=== PATIENT | male | born 1970 | race Hispanic/Latino ===

== ENCOUNTER 2018-03-10 17:20 | Inpatient (IN) | payer BC, OTHER ==
[2018-03-10 17:21] VITALS: BMI 34.3
[2018-03-10] MEDS ORDERED: Sodium Chloride 0.9% 1,000 ML IV ONE (17:34)
[2018-03-10 17:56] LABS: BASO % 0.8 % (0.0-2.0); EOS # 0.1 K/uL (0.0-0.7); EOS % 1.7 % (0.0-4.0); HEMOGLOBIN 15.2 g/dL (12.0-18.0); LYMPH # 1.9 K/uL (1.0-4.3); LYMPH % 28.9 % (20.0-40.0); MEAN CELL VOLUME 85.2 fL (80.0-94.0); MEAN CORPUSCULAR HEMOGLOBIN 29.2 pg (27.0-31.0); MEAN CORPUSCULAR HGB CONC 34.2 g/dL (33.0-37.0); MEAN PLATELET VOLUME 8.8 fL (7.2-11.7); MONO # 1.2 K/uL (0.0-0.8); MONO % 18.6 % (0.0-10.0); NEUT # 3.3 K/uL (1.8-7.0); NRBC % 0.1 % (0.0-2.0); RBC 5.2 Mil/uL (4.40-5.90); RED CELL DISTRIBUTION WIDTH 13.9 % (11.5-14.5); WHITE BLOOD COUNT 6.6 K/uL (4.8-10.8)
[2018-03-10] MEDS ORDERED: Sodium Chloride 0.9% 1,000 ML ONE (17:59)
[2018-03-10 18:02] LABS: INR 1.1; PROTHROMBIN TIME 11.7 SECONDS (9.7-12.2)
[2018-03-10 18:07] LABS: LIPASE 65 U/L (23-300)
--- NOTE | 2018-03-10 18:14 | C.PDOC ---
"History Of Present Illness <CaterinaIdalmis A - Last Filed: 03/10/18 18:49> <Mari Wilson - Last Filed: 03/10/18 20:08> 48-year-old male, PMHx includes hypertension and hypercholesterolemia, presents to the emergency department for evaluation of headache and hypertension. Patient states he is currently on Augmentin for a sinus infection. Patient reports a headache x5 days and states he is not compliant with his blood pressure medication. Notes his BP today is 198/128, he has not taken Losartan, and his PMD sent him here. Denies chest pain, nausea//vomiting, feverm chills, or any other associated symptoms. Of note pt had a stress test in 2014, and cardiac catheterization in 2009 PMD Bere Lange MD. (Idalmis Diggs) <Idalmis Diggs - Last Filed: 03/10/18 18:49> <Mari Wilson - Last Filed: 03/10/18 20:08> Time Seen by Provider: 03/10/18 17:33 Chief Complaint (Nursing): Chest Pain Past Medical History Reviewed: Historical Data, Nursing Documentation, Vital Signs - Medical History PMH: HTN, Hypercholesterolemia Family History: States: No Known Family Hx - Social History Hx Alcohol Use: No Hx Substance Use: No - Immunization History Hx Tetanus Toxoid Vaccination: Yes (06/2017) Hx Influenza Vaccination: No Hx Pneumococcal Vaccination: No <Idalmis Diggs Venus - Last Filed: 03/10/18 18:49> Vital Signs: Last Vital Signs Temp 98.7 F 03/10/18 19:56 Pulse 76 03/10/18 19:56 Resp 18 03/10/18 19:56 BP 195/117 H 03/10/18 19:56 Pulse Ox 96 03/10/18 19:56 Review Of Systems Constitutional: Negative for: Fever Cardiovascular: Negative for: Chest Pain, Palpitations Respiratory: Negative for: Shortness of Breath Gastrointestinal: Negative for: Nausea, Vomiting Musculoskeletal: Negative for: Back Pain Neurological: Positive for: Headache <Idalmis Diggs - Last Filed: 03/10/18 18:49> Physical Exam - Physical Exam Appears: Non-toxic, No Acute Distress, Other (Obese) Skin: Normal Color, Warm, Dry, No Rash Head: Atraumatic, Normacephalic Eye(s): bilateral: Normal Inspection Nose: Normal Oral Mucosa: Moist Lips: Normal Appearing Neck: Normal ROM Cardiovascular: Rhythm Regular, No Murmur Respiratory: Normal Breath Sounds, No Accessory Muscle Use Gastrointestinal/Abdominal: Soft, No Tenderness Back: Normal Inspection Extremity: Normal ROM, No Deformity Neurological/Psych: Oriented x3, Normal Speech <CaterinaIdalmis Venus - Last Filed: 03/10/18 18:49> ED Course And Treatment - Laboratory Results Result Diagrams: 03/10/18 17:53 03/10/18 18:24 ECG: Interpreted By Nc ECG Rhythm: Sinus Rhythm ECG Interpretation: Normal Rate From EC O2 Sat by Pulse Oximetry: 98 Pulse Ox Interpretation: Normal (RA) - Radiology CXR: Interpreted by Me CXR Interpretation: Yes: No Acute Disease Progress Note: Patient treated with IVF NSS, losartan 100 mg PO and HCTZ 25 mg PO <CaterinaIdalmis Venus - Last Filed: 03/10/18 18:49> - Laboratory Results Result Diagrams: 03/10/18 17:53 03/10/18 18:24 - CT Scan/US CT head Other Rad Studies (CT/US): Read By Radiologist, Radiology Report Reviewed CT/US Interpretation: EXAM: CT Head Without Intravenous Contrast. CLINICAL HISTORY: 48 years old, male; Condition or disease; Headache; Migraine; Aura effect not specified. TECHNIQUE: Axial computed tomography images of the head/ brain without intravenous contrast. All CT scans at. this facility use at least one of these dose optimization techniques: automated exposure control; mA. and/or kV adjustment per patient size (includes targeted exams where dose is matched to clinical. indication); or iterative reconstruction. Coronal and sagittal reformatted images were created and reviewed. COMPARISON: No relevant prior studies available. FINDINGS: Brain: No hemorrhage. No significant periventricular microischemic changes. No edema. Ventricles: Appropriate for patient's age. Bones/joints: No acute fracture. Soft tissues: No radiopaque foreign body. Sinuses: No acute sinusitis. Mastoid air cells: No mastoid effusion. IMPRESSION: No acute CT intracranial abnormalities. Thank you for allowing us to participate in the care of your patient. Dictated and Authenticated by: Tristen Whitaker MD. 03/10/2018 8:01 PM Eastern Time ([place] & [place]) CTA chest Other Rad Studies (CT/US): Read By Radiologist, Radiology Report Reviewed CT/US Interpretation: EXAM: CT Angiography Chest With Intravenous Contrast. CLINICAL HISTORY: 48 years old, male; Pain and signs and symptoms; Dyspnea and shortness of breath; Chest pain;. Type not specified. TECHNIQUE: Axial computed tomographic angiography images of the chest with intravenous contrast using. pulmonary embolism protocol. All CT scans at this facility use at least one of these dose optimization. techniques: automated exposure control; mA and/ or kV adjustment per patient size (includes targeted. exams where dose is matched to clinical indication); or iterative reconstruction. MIP reconstructed images were created and reviewed. Coronal and sagittal reformatted images were created and reviewed. CONTRAST: 100 mL of VISIPAQUE 320 administered intravenously. COMPARISON: No relevant prior studies available. FINDINGS: Pulmonary arteries: Contrast opacification of the pulmonary outflow tract and the bilateral pulmonary. arteries is seen. No filling defects are seen down to the second order branching vessels to suggest. presence of pulmonary embolism. Aorta: No acute findings. No thoracic aortic aneurysm. Lungs: Dependent lung atelectasis. No infiltrates. Pleural space: Intact. No significant effusion. No pneumothorax. Heart: No cardiomegaly. No significant pericardial effusion. No evidence of RV dysfunction. Bones/joints: No acute fracture. No dislocation. Soft tissues: No radiopaque foreign body. Lymph nodes: No enlarged lymph nodes. IMPRESSION: No pulmonary embolism to the segmental branching pulmonary arteries. GABY TIJERINA | Preliminary Radiology Report. CONFIDENTIALITY STATEMENT. This report is intended only for the use of the referring physician , and only in accordance with law, If you received this in error, call [phone]. Page 2 of 2. Preliminary interpretation is based on receipt of 1134 images. A final report will be issued. subsequently. We appreciate the opportunity to be involved in this patient's care. Thank you for allowing us to participate in the care of your patient. Dictated and Authenticated by: Tristen Whitaker MD. 03/10/2018 8:06 PM Eastern Time ([place] & [place]) <Mari Wilson - Last Filed: 03/10/18 20:08> Disposition - Disposition Disposition Time: 19:00 - POA Present On Arrival: None <Idalmis Diggs - Last Filed: 03/10/18 18:49> <Mari Wilson - Last Filed: 03/10/18 20:08> - Disposition Condition: STABLE Forms: [facility] ([place]est[place]) - Clinical Impression Clinical Impression: Chest pain - Scribe Statement The provider has reviewed the documentation as recorded by the Scribe (Jose Antonio Delaney) <Idalmis Diggs - Last Filed: 03/10/18 18:49> <Mari Wilson - Last Filed: 03/10/18 20:08> - Scribe Statement All medical record entries made by the Scribe were at my direction and personally dictated by me. I have reviewed the chart and agree that the record accurately reflects my personal performance of the history, physical exam, medical decision making, and the department course for this patient. I have also personally directed, reviewed, and agree with the discharge instructions and disposition. (Idalmis Diggs) Physician Patient Turnover Patient Signed Over To: Mari Wilson Handoff Comments: pending CTA <Idalmis Diggs - Last Filed: 03/10/18 18:49> Decision To Admit - Pt Status Changed To: Hospital Disposition Of: Inpatient - Admit Certification Admit to Inpatient:: After my assessment, the patient will require hospitalization for at least two midnights. This is because of the severity of symptoms shown, intensity of services needed, and/or the medical risk in this patient being treated as an outpatient. - InPatient: Physician Admission Certification: I certify that this patient requires 2 or more midnights of care for the following reason:: Chest pain. Hypertension - . Bed Request Type: Telemetry Admitting Physician: Bere Lange <Idalmis Diggs - Last Filed: 03/10/18 18:49> <Mari Wilson - Last Filed: 03/10/18 20:08> - . Patient Diagnosis: Chest pain"
[2018-03-10 18:17] LABS: SQUAMOUS EPITHIAL < 1 /hpf (0-5); URINE BILIRUBIN NEGATIVE (NEGATIVE); URINE BLOOD NEGATIVE (NEGATIVE); URINE CLARITY Clear (Clear); URINE COLOR Yellow (YELLOW); URINE GLUCOSE (UA) NORMAL (Normal); URINE LEUKOCYTE ESTERASE NEG Leu/uL (Negative); URINE PROTEIN NEGATIVE (NEGATIVE); URINE UROBILINOGEN NORMAL mg/dL (0.2-1.0)
[2018-03-10 18:20] LABS: CK-MB 1.62 ng/mL (0.0-3.38)
[2018-03-10] MEDS ORDERED: Iodixanol 320 MG/ML 100 ML BOTTLE IV ONE (18:21)
[2018-03-10 18:36] LABS: ALB/GLOB RATIO 1.4 (1.0-2.1); ALBUMIN 4.4 g/dL (3.5-5.0); ALT/SGPT 61 U/L (21-72); AST/SGOT 38 U/L (17-59); BLOOD UREA NITROGEN 11 mg/dL (9-20); CALCIUM 9.3 mg/dl (8.6-10.4); GFR AFRICAN-AMERICAN > 60; GFR NON-AFRICAN AMERICAN > 60
[2018-03-10] MEDS ORDERED: niCARdipine IV 25 MG in Sodium Chloride 0.9% 240 ML IV SCH (22:00)
[2018-03-10] MEDS ORDERED: Sodium Chloride 0.9% 1,000 ML IV SCH (22:45)
[2018-03-11 06:33] LABS: BASO % 0.7 % (0.0-2.0); EOS # 0.2 K/uL (0.0-0.7); EOS % 2.7 % (0.0-4.0); HEMOGLOBIN 13.7 g/dL (12.0-18.0); LYMPH # 1.8 K/uL (1.0-4.3); LYMPH % 32.3 % (20.0-40.0); MEAN CELL VOLUME 84.2 fL (80.0-94.0); MEAN CORPUSCULAR HEMOGLOBIN 29.2 pg (27.0-31.0); MEAN CORPUSCULAR HGB CONC 34.7 g/dL (33.0-37.0); MONO # 0.7 K/uL (0.0-0.8); MONO % 12.8 % (0.0-10.0); NEUT # 2.9 K/uL (1.8-7.0); NEUT % 51.5 % (50.0-75.0); NRBC % 0.1 % (0.0-2.0); RBC 4.7 Mil/uL (4.40-5.90); RED CELL DISTRIBUTION WIDTH 13.8 % (11.5-14.5); WHITE BLOOD COUNT 5.6 K/uL (4.8-10.8)
[2018-03-11 06:46] LABS: ALB/GLOB RATIO 1.3 (1.0-2.1); ALBUMIN 3.3 g/dL (3.5-5.0); ALT/SGPT 49 U/L (21-72); AST/SGOT 38 U/L (17-59); BLOOD UREA NITROGEN 8 mg/dL (9-20); CALCIUM 7.2 mg/dl (8.6-10.4); GFR AFRICAN-AMERICAN > 60; GFR NON-AFRICAN AMERICAN > 60
[2018-03-11 07:10] LABS: HDL CHOLESTEROL 21 mg/dL (30-70)
[2018-03-11 07:21] LABS: LDL CHOLESTEROL 112 mg/dL (0-129)
--- NOTE | 2018-03-11 08:40 | CT ---
Date of service: 03/10/2018 PROCEDURE: CT HEAD WITHOUT CONTRAST. HISTORY: headache COMPARISON: None available. TECHNIQUE: Axial computed tomography images were obtained through the head/brain without intravenous contrast. Radiation dose: Total exam DLP = 1045 mGy-cm. This CT exam was performed using one or more of the following dose reduction techniques: Automated exposure control, adjustment of the mA and/or kV according to patient size, and/or use of iterative reconstruction technique. FINDINGS: HEMORRHAGE: No intracranial hemorrhage. BRAIN: No mass effect or edema. No atrophy or chronic microvascular ischemic changes. Punctate hypodensity in the left basal ganglia may represent a prominent perivascular space versus small lacunar infarct. VENTRICLES: Unremarkable. No hydrocephalus. CALVARIUM: Unremarkable. PARANASAL SINUSES: Unremarkable as visualized. No significant inflammatory changes. MASTOID AIR CELLS: Unremarkable as visualized. No inflammatory changes. OTHER FINDINGS: None. IMPRESSION: No acute intracranial abnormality. If focal neurologic deficit persists, consider correlation with MRI. These findings were preliminarily reported at 8:01 p.m. on 03/10/[address] Tristen Whitaker from [facility].
[2018-03-11] MEDS: Potassium Chloride 20 mEq ER Tab PO SCH ×2 (09:26→14:00)
[2018-03-11] MEDS: Pantoprazole 40 mg EC Tab PO SCH (10:00)
--- NOTE | 2018-03-11 10:15 | CT ---
Date of service: 03/10/2018 PROCEDURE: CT Chest with contrast (Pulmonary Angiogram) HISTORY: Dyspnea COMPARISON: None available. TECHNIQUE: Axial computed tomography images were obtained of the chest in the pulmonary arterial phase of enhancement. Coronal and sagittal reformatted images were created and reviewed. Intravenous contrast dose: 100 cc Visipaque 320 Radiation dose: Total exam DLP = 38800. mGy-cm. This CT exam was performed using one or more of the following dose reduction techniques: Automated exposure control, adjustment of the mA and/or kV according to patient size, and/or use of iterative reconstruction technique. FINDINGS: PULMONARY ARTERIES: Suboptimal opacification of the pulmonary arteries. . The visualized pulmonary trunk, right and left main, lobar and segmental branches of the pulmonary arteries are opacified with no definitive filling defects seen to suggest acute central pulmonary embolus. The subsegmental branches are poorly delineated. Pulmonary trunk measures approximate 3.19 cm. AORTA: No acute findings. No thoracic aortic aneurysm. Ascending thoracic aorta measures approximately 4.1 cm and descending thoracic aorta measures approximately 2.96 cm. LUNGS: Mild passive/dependent type atelectasis both lung bases left greater than right. . . PLEURAL SPACES: Unremarkable. No effusion or pneumothorax. HEART: Heart is mildly enlarged. No significant pericardial effusion. LYMPH NODES: Few small nonspecific mediastinal and hilar lymph nodes. Central airways midline and patent. No large central endoluminal lesions. Small hiatal hernia is present. BONES, CHEST WALL: Minor multilevel degenerative spondylosis of the thoracic spine. OTHER FINDINGS: Mild fatty hepatic infiltration IMPRESSION: Suboptimal study demonstrating no definitive central pulmonary embolus. . Ascending thoracic aorta measures approximately 4.1 cm Mild fatty hepatic infiltration.
--- NOTE | 2018-03-11 11:06 | CARD ---
APPROVED REPORT Date of service: 03/10/2018 EKG Measurement Heart [id number] <Conclusion> Normal sinus rhythm Minimal voltage criteria for LVH, may be normal variant Borderline ECG
--- NOTE | 2018-03-11 20:51 | CP.PCM.PN ---
Subjective - Date & Time of Evaluation Date of Evaluation: 03/11/18 Time of Evaluation: 12:04 - Subjective Subjective: Patient being transferred to the regular medical floor Being watched in the telemetry point of view. His blood pressure still on the high side. He has no chest pain, but headache still present, better than yesterday. Seen by ENT specialist. On examination: No new findings noted, less headache than yesterday. Blood pressure still uncontrolled. We will continue to monitor the patient. Possible cardiac angiogram tomorrow. Adjust the blood pressure monitoring and blood pressure medication. Patient definitely will need outpatient sleep study evaluation. And will follow -up the patient Also patient has a significant anxiety. Objective - Vital Signs/Intake and Output Vital Signs (last 24 hours): Temp Pulse Resp BP Pulse Ox 97.7 F 64 16 167/92 H 98 03/11/18 16:48 03/11/18 20:34 03/11/18 16:48 03/11/18 20:34 03/11/18 16:20 Intake and Output: 03/11/18 03/12/18 18:59 06:59 Intake Total 1320 Output Total 1425 Balance -105 - Medications Medications: Current Medications Acetaminophen (Tylenol 325mg Tab) 650 mg PO Q6 PRN PRN Reason: Headache Last Admin: 03/10/18 21:43 Dose: 650 mg Alprazolam (Xanax) 0.25 mg PO BID PRN PRN Reason: Anxiety Stop: 03/17/18 20:08 Last Admin: 03/10/18 20:49 Dose: 0.25 mg Amlodipine Besylate (Norvasc) 10 mg PO DAILY [facility] Last Admin: 03/11/18 10:00 Dose: 10 mg Ketorolac Tromethamine (Toradol) 15 mg IVP Q6 PRN PRN Reason: Headache Last Admin: 03/11/18 07:19 Dose: 15 mg Losartan Potassium (Cozaar) 100 mg PO DAILY [facility] Last Admin: 03/11/18 09:27 Dose: 100 mg Metoprolol Tartrate (Lopressor) 25 mg PO BID [facility] Last Admin: 03/11/18 17:34 Dose: 25 mg Pantoprazole Sodium (Protonix Ec Tab) 40 mg PO DAILY [facility] Last Admin: 03/11/18 10:00 Dose: 40 mg - Labs Labs: 03/11/18 06:20 03/11/18 06:20 PT 11.7 SECONDS (9.7-12.2) 03/10/18 17:53 INR 1.1 03/10/18 17:53
--- NOTE | 2018-03-11 20:51 | CP.PCM.HP ---
History of Present Illness - History of Present Illness History of Present Illness: Chief complaint: Severe headache, chest tightness. HPI: 48-year-old male with a history of hypertension, hypercholesterolemia came to the emergency room with worsening headache. Patient was complaining of increasing headache recently for the last 3-4 days. 2 weeks ago patient went to see ENT specialist for the headache and questionable diagnosis of sinusitis, given antibiotic at that time. But no improvement. Because of the headache worsening, he stopped taking medication for 2 days for the blood pressure, thinking medication causing the pressure. And also he is having increasing pressure in the left eye area. So he stopped taking it. Now the pressure is extremely elevated, associate with a headache especially on the left side of the face on the left side of the forehead. Almost a 10 years ago patient had angiogram of the heart, at that time he was diagnosed with a nonobstructive coronaries. Following that he was not following, and significant weight gain noted. In the past he was evaluated for sleep apnea, but no diagnosis was made at the time. Past medical history: Hypertension hypercholesterolemia anxiety insomnia. Allergies no known drug allergy Family history significant for atrial fibrillation and the mother thyrotoxicosis COPD Surgical history none Personal history: Non-smoker, nonalcoholic. He is working as a border police Review of system: Significant headache noted. Patient is also having increasing symptoms of headache. No visual symptom, including blurring vision, or floaters noted. Occasional nausea noted. Unable to sleep at night, choking sensation present, morning headache noted. Now having uncontrolled blood pressure On examination: Vital signs are stable. Elevated blood pressure noted. In spite of the 2 antihypertensives pressures still elevated. And because of the headache and associated hypertensive crisis we admitted the patient to intensive care unit with intravenous Cardene drip. Patient has able to move all the 4 extremities, he has no confusion, alert and awake. Labs reviewed Nonspecific. X-ray negative. CT scan of the chest with contrast is showing no evidence of PE. Also no evidence of ANESTHESIA TECHNICIAN problems in the CAT scan of the head Assessment and recommendation: 48-year-old male with a history of hypertension and hypercholesterolemia noncompliance. Now having worsening headache and associated with the hypertension. Most likely hypertensive encephalopathy. Medications updated. According to the radiosonde operator the patient may need evaluation by cardiac cath Close monitoring. Intravenous Cardene drip. Blood pressure monitoring. Cardiology evaluation. ENT evaluation. DVT GI prophylaxis and will follow the patient Present on Admission - Present on Admission Any Indicators Present on Admission: No History of DVT/PE: No History of Uncontrolled Diabetes: No Urinary Catheter: No Decubitus Ulcer Present: No Past Patient History - Past Medical History & Family History Past Medical History?: Yes - Past Social History Smoking Status: Former Smoker - CARDIAC Hx Cardiac Disorders: Yes Hx Hypercholesterolemia: Yes Hx Hypertension: Yes - PULMONARY Hx Respiratory Disorders: No - NEUROLOGICAL Hx Neurological Disorder: Yes Other/Comment: Patient reports hx of concussion trauma related - HEENT Hx HEENT Problems: Yes Hx Sinusitis: Yes Other/Comment: deviated septum - RENAL Hx Chronic Kidney Disease: No - ENDOCRINE/METABOLIC Hx Endocrine Disorders: No - HEMATOLOGICAL/ONCOLOGICAL Hx Blood Disorders: No - INTEGUMENTARY Hx Dermatological Problems: No - MUSCULOSKELETAL/RHEUMATOLOGICAL Hx Musculoskeletal Disorders: No - GASTROINTESTINAL Hx Gastrointestinal Disorders: No - GENITOURINARY/GYNECOLOGICAL Hx Genitourinary Disorders: No - PSYCHIATRIC Hx Psychophysiologic Disorder: No Hx Substance Use: No - SURGICAL HISTORY Hx Surgeries: Yes Hx Cardiac Catheterization: Yes Other/Comment: SEPTOPLASTY, Mandible implant. Dental implants - ANESTHESIA Hx Anesthesia: Yes Hx Anesthesia Reactions: No Meds Allergies/Adverse Reactions: Allergies Allergy/AdvReac Type Severity Reaction Status Date / Time No Known Allergies Allergy Verified 03/10/18 17:55 Results - Vital Signs Recent Vital Signs: Last Vital Signs Temp 97.7 F 03/11/18 16:48 Pulse 64 03/11/18 20:34 Resp 16 03/11/18 16:48 BP 167/92 H 03/11/18 20:34 Pulse Ox 98 03/11/18 16:20 - Labs Result Diagrams: 03/11/18 06:20 03/12/18 06:19 Labs: Laboratory Results - last 24 hr 03/11/18 03/11/18 03/11/18 06:20 06:20 06:53 WBC 5.6 RBC 4.70 Hgb 13.7 Hct 39.6 MCV 84.2 MCH 29.2 MCHC 34.7 RDW 13.8 Plt Count 273 MPV 9.0 Neut % (Auto) 51.5 Lymph % (Auto) 32.3 [place] % (Auto) 12.8 H Eos % (Auto) 2.7 Baso % (Auto) 0.7 Neut # (Auto) 2.9 Lymph # (Auto) 1.8 [place] # (Auto) 0.7 Eos # (Auto) 0.2 Baso # (Auto) 0.0 Sodium 142 Potassium 2.9 L Chloride 110 H Carbon Dioxide 23 Anion Gap 13 BUN 8 L Creatinine 0.6 L Est GFR ( Amer) > 60 Est GFR (Non-Af Amer) > 60 Random Glucose 93 Hemoglobin A1c Calcium 7.2 L Phosphorus 3.0 Magnesium 1.8 Total Bilirubin 0.3 AST 38 ALT 49 Alkaline Phosphatase 65 Total Protein 5.7 L Albumin 3.3 L D Globulin 2.4 Albumin/Globulin Ratio 1.3 Triglycerides 245 H Cholesterol 183 LDL Cholesterol Direct 112 HDL Cholesterol 21 L /16/18 06:53 WBC RBC Hgb Hct MCV MCH MCHC RDW Plt Count MPV Neut % (Auto) Lymph % (Auto) [place] % (Auto) Eos % (Auto) Baso % (Auto) Neut # (Auto) Lymph # (Auto) [place] # (Auto) Eos # (Auto) Baso # (Auto) Sodium Potassium Chloride Carbon Dioxide Anion Gap BUN Creatinine Est GFR ( Amer) Est GFR (Non-Af Amer) Random Glucose Hemoglobin A1c 5.6 Calcium Phosphorus Magnesium Total Bilirubin AST ALT Alkaline Phosphatase Total Protein Albumin Globulin Albumin/Globulin Ratio Triglycerides Cholesterol LDL Cholesterol Direct HDL Cholesterol
[2018-03-11 21:27] LABS: BLOOD UREA NITROGEN 10 mg/dL (9-20); CALCIUM 8.8 mg/dl (8.6-10.4); GFR AFRICAN-AMERICAN > 60; GFR NON-AFRICAN AMERICAN > 60
--- NOTE | 2018-03-11 22:34 | CP.PCM.CON ---
History of Present Illness - History of Present Illness History of Present Illness: Patient seen and evaluted C/O headaches Denies chest pain an dyspnea Past Patient History - Past Medical History & Family History Past Medical History?: Yes - Past Social History Smoking Status: Former Smoker - CARDIAC Hx Cardiac Disorders: Yes Hx Hypercholesterolemia: Yes Hx Hypertension: Yes - PULMONARY Hx Respiratory Disorders: No - NEUROLOGICAL Hx Neurological Disorder: Yes Other/Comment: Patient reports hx of concussion trauma related - HEENT Hx HEENT Problems: Yes Hx Sinusitis: Yes Other/Comment: deviated septum - RENAL Hx Chronic Kidney Disease: No - ENDOCRINE/METABOLIC Hx Endocrine Disorders: No - HEMATOLOGICAL/ONCOLOGICAL Hx Blood Disorders: No - INTEGUMENTARY Hx Dermatological Problems: No - MUSCULOSKELETAL/RHEUMATOLOGICAL Hx Musculoskeletal Disorders: No - GASTROINTESTINAL Hx Gastrointestinal Disorders: No - GENITOURINARY/GYNECOLOGICAL Hx Genitourinary Disorders: No - PSYCHIATRIC Hx Psychophysiologic Disorder: No Hx Substance Use: No - SURGICAL HISTORY Hx Surgeries: Yes Hx Cardiac Catheterization: Yes Other/Comment: SEPTOPLASTY, Mandible implant. Dental implants - ANESTHESIA Hx Anesthesia: Yes Hx Anesthesia Reactions: No Meds Allergies/Adverse Reactions: Allergies Allergy/AdvReac Type Severity Reaction Status Date / Time No Known Allergies Allergy Verified 03/10/18 17:55 - Medications Medications: Current Medications Acetaminophen (Tylenol 325mg Tab) 650 mg PO Q6 PRN PRN Reason: Headache Last Admin: 03/10/18 21:43 Dose: 650 mg Alprazolam (Xanax) 0.25 mg PO BID PRN PRN Reason: Anxiety Stop: 03/17/18 20:08 Last Admin: 03/10/18 20:49 Dose: 0.25 mg Amlodipine Besylate (Norvasc) 10 mg PO DAILY [facility] Last Admin: 03/11/18 10:00 Dose: 10 mg Ketorolac Tromethamine (Toradol) 15 mg IVP Q6 PRN PRN Reason: Headache Last Admin: 03/11/18 07:19 Dose: 15 mg Losartan Potassium (Cozaar) 100 mg PO DAILY [facility] Last Admin: 03/11/18 09:27 Dose: 100 mg Metoprolol Tartrate (Lopressor) 25 mg PO BID [facility] Last Admin: 03/11/18 17:34 Dose: 25 mg Pantoprazole Sodium (Protonix Ec Tab) 40 mg PO DAILY [facility] Last Admin: 03/11/18 10:00 Dose: 40 mg Results - Vital Signs Recent Vital Signs: Last Vital Signs Temp 97.7 F 03/11/18 16:48 Pulse 64 03/11/18 20:34 Resp 16 03/11/18 16:48 BP 167/92 H 03/11/18 20:34 Pulse Ox 98 03/11/18 16:20 - Labs Result Diagrams: 03/11/18 06:20 03/11/18 21:08 Labs: Laboratory Results - last 24 hr 03/11/18 03/11/18 03/11/18 06:20 06:20 06:53 WBC 5.6 RBC 4.70 Hgb 13.7 Hct 39.6 MCV 84.2 MCH 29.2 MCHC 34.7 RDW 13.8 Plt Count 273 MPV 9.0 Neut % (Auto) 51.5 Lymph % (Auto) 32.3 [place] % (Auto) 12.8 H Eos % (Auto) 2.7 Baso % (Auto) 0.7 Neut # (Auto) 2.9 Lymph # (Auto) 1.8 [place] # (Auto) 0.7 Eos # (Auto) 0.2 Baso # (Auto) 0.0 Sodium 142 Potassium 2.9 L Chloride 110 H Carbon Dioxide 23 Anion Gap 13 BUN 8 L Creatinine 0.6 L Est GFR ( Amer) > 60 Est GFR (Non-Af Amer) > 60 Random Glucose 93 Hemoglobin A1c Calcium 7.2 L Phosphorus 3.0 Magnesium 1.8 Total Bilirubin 0.3 AST 38 ALT 49 Alkaline Phosphatase 65 Total Protein 5.7 L Albumin 3.3 L D Globulin 2.4 Albumin/Globulin Ratio 1.3 Triglycerides 245 H Cholesterol 183 LDL Cholesterol Direct 112 HDL Cholesterol 21 L 03/11/18 03/11/18 06:53 21:08 WBC RBC Hgb Hct MCV MCH MCHC RDW Plt Count MPV Neut % (Auto) Lymph % (Auto) [place] % (Auto) Eos % (Auto) Baso % (Auto) Neut # (Auto) Lymph # (Auto) [place] # (Auto) Eos # (Auto) Baso # (Auto) Sodium 142 Potassium 3.8 Chloride 105 Carbon Dioxide 26 Anion Gap 14 BUN 10 Creatinine 0.9 Est GFR ( Amer) > 60 Est GFR (Non-Af Amer) > 60 Random Glucose 132 H Hemoglobin A1c 5.6 Calcium 8.8 Phosphorus Magnesium Total Bilirubin AST ALT Alkaline Phosphatase Total Protein Albumin Globulin Albumin/Globulin Ratio Triglycerides Cholesterol LDL Cholesterol Direct HDL Cholesterol Assessment & Plan - Assessment and Plan (Free Text) Assessment: Non obstructive CAD Headache Neuro/ENT eval in progress CTA and CT scan negative
--- NOTE | 2018-03-12 00:36 | CON ---
Copied To: Servando Leo MD Attending MD: Servando Leo MD DATE: 03/11/2018 FOLLOWUP CONSULTATION REQUESTING PHYSICIAN: Dr. Lange REASON FOR CONSULTATION: Headache, possible sinusitis. HISTORY: This is a 48-year-old male with a 5-day history of headache, constant, moderate to severe in intensity, on the left side. There is no nasal congestion. No nasal discharge. It should be noted that the patient was treated by me for sinusitis. PAST MEDICAL HISTORY: As noted in the chart by me. MEDICATIONS: As noted in the chart by me. PHYSICAL EXAMINATION: HEAD: Atraumatic and normocephalic. FACE: Good facial movements bilaterally. CONSTITUTIONAL: Well developed and well nourished. COMMUNICATION: The patient communicates appropriately. EXTERNAL NOSE AND EARS: No masses, no lesions, no erythema, no edema. INTERNAL NOSE: Deviated septum. No masses, no lesions, no erythema, no edema. ORAL CAVITY AND OROPHARYNX: No masses, no lesions, no erythema, no edema. LIPS AND GUMS: No masses, no lesions, no erythema, no edema. NECK: Supple. THYROID: No thyromegaly. No goiter. LYMPH NODES: No lymphadenopathy of the neck. NEUROLOGIC: The patient is alert, awake, and oriented to time, person and place. LABORATORY DATA: CAT scan was reviewed by me. There is no evidence of sinusitis. ASSESSMENT: 1. Deviated septum. 2. Headaches. 3. Sinusitis as noted. PLAN: The patient should be evaluated by Neurology for headaches. Servando Leo MD MTDD
[2018-03-12 06:39] LABS: BLOOD UREA NITROGEN 10 mg/dL (9-20); CALCIUM 8.2 mg/dl (8.6-10.4); GFR AFRICAN-AMERICAN > 60; GFR NON-AFRICAN AMERICAN > 60
--- NOTE | 2018-03-12 10:58 | CARD ---
APPROVED REPORT Date of service: 03/11/2018 EXAM: Two-dimensional and M-mode echocardiogram with Doppler and color Doppler. Other Information Quality : GoodRhythm : RISK FACTORS Hypertension 2D DIMENSIONS IVSd1.3 (0.7-1.1cm)LVDd5.0 (3.9-5.9cm) PWd1.3 (0.7-1.1cm)LVDs2.8 (2.5-4.0cm) FS (%) 42.6 %LVEF (%)73.5 (>50%) M-Mode DIMENSIONS Left Atrium (MM)4.28 (2.5-4.0cm)IVSd1.06 (0.7-1.1cm) Aortic Root4.09 (2.2-3.7cm)LVDd5.49 (4.0-5.6cm) Aortic Cusp Exc.2.93 (1.5-2.0cm)PWd1.06 (0.7-1.1cm) FS (%) 44 %LVDs3.05 (2.0-3.8cm) LVEF (%)75 (>50%) Aortic Valve AI P 1/2 [id number] Mitral Valve MV E Dadrreun24.9cm/sMV A Sgusuijy81.8cm/sE/A ratio1.0 TDI E/Lateral E'0.0E/Medial E'0.0 LEFT VENTRICLE The left ventricle is normal size. There is mild concentric left ventricular hypertrophy. The Ejection Fraction is 65-70%. There is normal LV segmental wall motion. The left ventricular diastolic function is normal. RIGHT VENTRICLE The right ventricle is normal size. The right ventricular systolic function is normal. ATRIA The left atrium is mildly dilated. The right atrium size is normal. The interatrial septum is intact with no evidence for an atrial septal defect. AORTIC VALVE The aortic valve is normal in structure. There is mild aortic regurgitation. MITRAL VALVE The mitral valve is normal in structure. Mitral regurgitation is mild. TRICUSPID VALVE The tricuspid valve is normal in structure. There is no tricuspid valve regurgitation noted. PULMONIC VALVE The pulmonary valve is normal in structure. There is mild pulmonic valvular regurgitation. GREAT VESSELS The aortic root is mildly enlarged. The IVC is normal in size and collapses >50% with inspiration. PERICARDIAL EFFUSION small anterior echo free space suggest pericardial fat. <Conclusion> The left ventricle is normal size. There is mild concentric left ventricular hypertrophy. The Ejection Fraction is 65-70%. The left ventricular diastolic function is normal. The left atrium is mildly dilated. There is mild aortic regurgitation. Mitral regurgitation is mild. The aortic root is mildly enlarged. small anterior echo free space suggest pericardial fat.
[2018-03-12] MEDS: Pantoprazole 40 mg EC Tab PO SCH (11:00)
--- NOTE | 2018-03-12 12:08 | CP.PCM.PN ---
Subjective - Date & Time of Evaluation Date of Evaluation: 03/12/18 Time of Evaluation: 12:08 - Subjective Subjective: This morning patient still continues to have elevated blood pressure. Episodic headache present. Seen by ENT specialist. We will get a neurology consultation today. He is scheduled to have a cardiac angiogram today. Latest blood pressure is 170/88. Chest good air entry Clinical examination is unremarkable Awaiting for angiogram results. Patient will need to monitor the blood pressure. We will get the renal vascular study. Added hydralazine. Continue to monitor and will follow the patient Objective - Vital Signs/Intake and Output Vital Signs (last 24 hours): Temp Pulse Resp BP Pulse Ox 97.5 F L 65 20 182/118 H 96 03/12/18 07:59 03/12/18 08:42 03/12/18 07:59 03/12/18 07:59 03/12/18 07:59 - Medications Medications: Current Medications Acetaminophen (Tylenol 325mg Tab) 650 mg PO Q6 PRN PRN Reason: Headache Last Admin: 03/10/18 21:43 Dose: 650 mg Alprazolam (Xanax) 0.25 mg PO BID PRN PRN Reason: Anxiety Stop: 03/17/18 20:08 Last Admin: 03/10/18 20:49 Dose: 0.25 mg Amlodipine Besylate (Norvasc) 10 mg PO DAILY [facility] Last Admin: 03/12/18 07:58 Dose: 10 mg Carvedilol (Coreg) 3.125 mg PO BID [facility] Hydralazine HCl (Apresoline) 10 mg PO QID [facility] Losartan Potassium (Cozaar) 100 mg PO DAILY [facility] Last Admin: 03/11/18 09:27 Dose: 100 mg Pantoprazole Sodium (Protonix Ec Tab) 40 mg PO DAILY [facility] Last Admin: 03/11/18 10:00 Dose: 40 mg - Labs Labs: 03/11/18 06:20 03/12/18 06:19 PT 11.7 SECONDS (9.7-12.2) 03/10/18 17:53 INR 1.1 03/10/18 17:53
[2018-03-12] MEDS ORDERED: Nitroglycerin 2% Ointment Foilpak UD TOP PRN (20:55)
--- NOTE | 2018-03-12 22:23 | CP.PCM.PN ---
Subjective - Date & Time of Evaluation Date of Evaluation: 03/12/18 Time of Evaluation: 22:21 - Subjective Subjective: patient seen and evaluated C/O headaches Neuro on case Uncontrolled HTN Cardiac cath cancelled due to headaches and uncontrolled HTN May need secondary HTN work up Objective - Vital Signs/Intake and Output Vital Signs (last 24 hours): Temp Pulse Resp BP Pulse Ox 97.9 F 73 20 149/87 97 03/12/18 15:00 03/12/18 16:00 03/12/18 15:00 03/12/18 15:00 03/12/18 15:00 - Medications Medications: Current Medications Acetaminophen (Tylenol 325mg Tab) 650 mg PO Q6 PRN PRN Reason: Headache Last Admin: 03/12/18 14:14 Dose: 650 mg Alprazolam (Xanax) 0.25 mg PO BID PRN PRN Reason: Anxiety Stop: 03/17/18 20:08 Last Admin: 03/12/18 14:14 Dose: 0.25 mg Amlodipine Besylate (Norvasc) 10 mg PO DAILY [facility] Last Admin: 03/12/18 11:00 Dose: Not Given Carvedilol (Coreg) 3.125 mg PO BID [facility] Last Admin: 03/12/18 18:24 Dose: 3.125 mg Hydralazine HCl (Apresoline) 10 mg PO QID [facility] Last Admin: 03/12/18 21:57 Dose: Not Given Losartan Potassium (Cozaar) 100 mg PO DAILY [facility] Last Admin: 03/12/18 11:00 Dose: Not Given Nitroglycerin (Nitro-Bid 2% Oint) 1 ea TOP Q6 PRN PRN Reason: chest pain Pantoprazole Sodium (Protonix Ec Tab) 40 mg PO DAILY [facility] Last Admin: 03/12/18 11:00 Dose: Not Given - Labs Labs: 03/11/18 06:20 03/12/18 06:19 PT 11.7 SECONDS (9.7-12.2) 03/10/18 17:53 INR 1.1 03/10/18 17:53 Assessment and Plan - Assessment and Plan (Free Text) Assessment: C/O headaches Neuro on case Uncontrolled HTN Cardiac cath cancelled due to headaches and uncontrolled HTN May need secondary HTN work up
[2018-03-12 23:11] LABS: CK-MB 0.83 ng/mL (0.0-3.38)
[2018-03-13 07:10] LABS: BASO % 0.4 % (0.0-2.0); EOS # 0.2 K/uL (0.0-0.7); EOS % 3.1 % (0.0-4.0); HEMOGLOBIN 15.2 g/dL (12.0-18.0); LYMPH # 1.7 K/uL (1.0-4.3); LYMPH % 25.4 % (20.0-40.0); MEAN CELL VOLUME 83.4 fL (80.0-94.0); MEAN CORPUSCULAR HEMOGLOBIN 28.6 pg (27.0-31.0); MEAN CORPUSCULAR HGB CONC 34.3 g/dL (33.0-37.0); MEAN PLATELET VOLUME 9.2 fL (7.2-11.7); MONO # 0.8 K/uL (0.0-0.8); MONO % 12.1 % (0.0-10.0); NEUT # 3.8 K/uL (1.8-7.0); NRBC % 0.2 % (0.0-2.0); RBC 5.32 Mil/uL (4.40-5.90); RED CELL DISTRIBUTION WIDTH 13.7 % (11.5-14.5); WHITE BLOOD COUNT 6.5 K/uL (4.8-10.8)
[2018-03-13 07:43] LABS: ALB/GLOB RATIO 1.4 (1.0-2.1); ALBUMIN 4.1 g/dL (3.5-5.0); ALT/SGPT 62 U/L (21-72); AST/SGOT 35 U/L (17-59); BLOOD UREA NITROGEN 12 mg/dL (9-20); CALCIUM 9.2 mg/dl (8.6-10.4); GFR AFRICAN-AMERICAN > 60; GFR NON-AFRICAN AMERICAN > 60
[2018-03-13] MEDS: Pantoprazole 40 mg EC Tab PO SCH (10:36)
--- NOTE | 2018-03-13 14:15 | CP.PCM.PN ---
Subjective - Date & Time of Evaluation Date of Evaluation: 03/13/18 Time of Evaluation: 14:15 - Subjective Subjective: Patient last night had episode of headache. Facial pain. But this morning he is feeling slightly better. Still having minimal pain in the left side of the face. No chest pain or shortness of breath noted. On examination: Vital signs stable. Blood pressures on the high side. But controlled better than yesterday. Labs reviewed Nonspecific EKG no EKG changes noted, no ST elevation. Clinical examination is otherwise unremarkable We will continue the current treatment. Patient is at high risk for sleep apnea, will place the patient on BiPAP tonight. Along with oxygen. Patient was using nicotine gum more than 5/h, in the past I advised him for nicotine replacement treatment. We will follow the patient Objective - Vital Signs/Intake and Output Vital Signs (last 24 hours): Temp Pulse Resp BP Pulse Ox 97.6 F 78 20 138/83 97 03/13/18 07:00 03/13/18 13:55 03/13/18 07:00 03/13/18 13:55 03/13/18 07:00 - Medications Medications: Current Medications Acetaminophen (Tylenol 325mg Tab) 650 mg PO Q6 PRN PRN Reason: Headache Last Admin: 03/12/18 20:30 Dose: 650 mg Alprazolam (Xanax) 0.25 mg PO BID PRN PRN Reason: Anxiety Stop: 03/17/18 20:08 Last Admin: 03/13/18 10:36 Dose: 0.25 mg Amlodipine Besylate (Norvasc) 10 mg PO DAILY [facility] Last Admin: 03/13/18 11:59 Dose: 10 mg Carvedilol (Coreg) 3.125 mg PO BID [facility] Last Admin: 03/13/18 11:59 Dose: 3.125 mg Hydralazine HCl (Apresoline) 10 mg PO QID [facility] Last Admin: 03/13/18 13:57 Dose: 10 mg Losartan Potassium (Cozaar) 100 mg PO DAILY [facility] Last Admin: 03/13/18 10:37 Dose: 100 mg Nicotine (Nicoderm Cq) 1 patch TD DAILY [facility] Last Admin: 03/13/18 13:56 Dose: 1 patch Nitroglycerin (Nitro-Bid 2% Oint) 1 ea TOP Q6 PRN PRN Reason: chest pain Pantoprazole Sodium (Protonix Ec Tab) 40 mg PO DAILY [facility] Last Admin: 03/13/18 10:36 Dose: 40 mg - Labs Labs: 03/13/18 07:01 03/13/18 07:01 PT 11.7 SECONDS (9.7-12.2) 03/10/18 17:53 INR 1.1 03/10/18 17:53
--- NOTE | 2018-03-13 22:08 | CP.PCM.PN ---
Subjective - Date & Time of Evaluation Date of Evaluation: 03/13/18 Time of Evaluation: 17:05 Objective - Vital Signs/Intake and Output Vital Signs (last 24 hours): Temp Pulse Resp BP Pulse Ox 97.6 F 82 18 161/88 H 100 03/13/18 15:00 03/13/18 18:05 03/13/18 18:05 03/13/18 18:05 03/13/18 18:05 - Medications Medications: Current Medications Acetaminophen (Tylenol 325mg Tab) 650 mg PO Q6 PRN PRN Reason: Headache Last Admin: 03/13/18 18:08 Dose: 650 mg Alprazolam (Xanax) 0.25 mg PO BID PRN PRN Reason: Anxiety Stop: 03/17/18 20:08 Last Admin: 03/13/18 10:36 Dose: 0.25 mg Amlodipine Besylate (Norvasc) 10 mg PO DAILY [facility] Last Admin: 03/13/18 11:59 Dose: 10 mg Carvedilol (Coreg) 3.125 mg PO BID [facility] Last Admin: 03/13/18 18:05 Dose: 3.125 mg Hydralazine HCl (Apresoline) 10 mg PO QID [facility] Last Admin: 03/13/18 18:05 Dose: 10 mg Losartan Potassium (Cozaar) 100 mg PO DAILY [facility] Last Admin: 03/13/18 10:37 Dose: 100 mg Nicotine (Nicoderm Cq) 1 patch TD DAILY [facility] Last Admin: 03/13/18 13:56 Dose: 1 patch Nitroglycerin (Nitro-Bid 2% Oint) 1 ea TOP Q6 PRN PRN Reason: chest pain Pantoprazole Sodium (Protonix Ec Tab) 40 mg PO DAILY [facility] Last Admin: 03/13/18 10:36 Dose: 40 mg - Labs Labs: 03/13/18 07:01 03/13/18 07:01 PT 11.7 SECONDS (9.7-12.2) 03/10/18 17:53 INR 1.1 03/10/18 17:53
[2018-03-14 09:24] LABS: BASO % 0.6 % (0.0-2.0); EOS # 0.1 K/uL (0.0-0.7); EOS % 2.8 % (0.0-4.0); HEMOGLOBIN 15.3 g/dL (12.0-18.0); LYMPH # 1.4 K/uL (1.0-4.3); LYMPH % 28.7 % (20.0-40.0); MEAN CELL VOLUME 84.3 fL (80.0-94.0); MEAN CORPUSCULAR HEMOGLOBIN 28.9 pg (27.0-31.0); MEAN CORPUSCULAR HGB CONC 34.3 g/dL (33.0-37.0); MEAN PLATELET VOLUME 9.2 fL (7.2-11.7); MONO # 0.6 K/uL (0.0-0.8); MONO % 12.8 % (0.0-10.0); NEUT # 2.7 K/uL (1.8-7.0); NEUT % 55.1 % (50.0-75.0); RBC 5.28 Mil/uL (4.40-5.90); RED CELL DISTRIBUTION WIDTH 13.5 % (11.5-14.5); WHITE BLOOD COUNT 4.8 K/uL (4.8-10.8)
[2018-03-14 09:43] LABS: ALB/GLOB RATIO 1.2 (1.0-2.1); ALBUMIN 4.2 g/dL (3.5-5.0); ALT/SGPT 61 U/L (21-72); AST/SGOT 38 U/L (17-59); BLOOD UREA NITROGEN 10 mg/dL (9-20); CALCIUM 9.2 mg/dl (8.6-10.4); GFR AFRICAN-AMERICAN > 60; GFR NON-AFRICAN AMERICAN > 60
[2018-03-14] MEDS: Magnesium Oxide 400 mg Tab UD PO SCH ×2 (09:54→17:15)
[2018-03-14] MEDS: Pantoprazole 40 mg EC Tab PO SCH (09:55)
--- NOTE | 2018-03-14 21:30 | CP.PCM.PN ---
Subjective - Date & Time of Evaluation Date of Evaluation: 03/14/18 Time of Evaluation: 21:29 - Subjective Subjective: bp better less headache using bipap last night felt good no other symptoms will get renal scan MRI will f/u Objective - Vital Signs/Intake and Output Vital Signs (last 24 hours): Temp Pulse Resp BP Pulse Ox 98.2 F 69 20 151/87 H 95 03/14/18 16:46 03/14/18 16:46 03/14/18 16:46 03/14/18 16:46 03/14/18 16:46 Intake and Output: 03/14/18 03/15/18 18:59 06:59 Intake Total 720 Balance 720 - Medications Medications: Current Medications Acetaminophen (Tylenol 325mg Tab) 650 mg PO Q6 PRN PRN Reason: Headache Last Admin: 03/14/18 21:23 Dose: 650 mg Alprazolam (Xanax) 0.25 mg PO BID PRN PRN Reason: Anxiety Stop: 03/17/18 20:08 Last Admin: 03/14/18 21:23 Dose: 0.25 mg Amlodipine Besylate (Norvasc) 10 mg PO DAILY [facility] Last Admin: 03/14/18 09:55 Dose: 10 mg Carvedilol (Coreg) 3.125 mg PO BID [facility] Last Admin: 03/14/18 17:15 Dose: 3.125 mg Hydralazine HCl (Apresoline) 10 mg PO QID [facility] Last Admin: 03/14/18 21:19 Dose: 10 mg Losartan Potassium (Cozaar) 100 mg PO DAILY [facility] Last Admin: 03/14/18 10:05 Dose: 100 mg Magnesium Oxide (Mag-Ox) 400 mg PO BID [facility] Last Admin: 03/14/18 17:15 Dose: 400 mg Nicotine (Nicoderm Cq) 1 patch TD DAILY [facility] Last Admin: 03/14/18 09:55 Dose: 1 patch Nitroglycerin (Nitro-Bid 2% Oint) 1 ea TOP Q6 PRN PRN Reason: chest pain Pantoprazole Sodium (Protonix Ec Tab) 40 mg PO DAILY [facility] Last Admin: 03/14/18 09:55 Dose: 40 mg Rosuvastatin Calcium (Crestor) 20 mg PO HS [facility] Last Admin: 03/14/18 21:19 Dose: 20 mg - Labs Labs: 03/14/18 09:09 03/14/18 09:09 PT 11.7 SECONDS (9.7-12.2) 03/10/18 17:53 INR 1.1 03/10/18 17:53
--- NOTE | 2018-03-14 22:49 | CP.PCM.PN ---
Subjective - Date & Time of Evaluation Date of Evaluation: 03/14/18 Time of Evaluation: 19:30 - Subjective Subjective: Patient seen and evaluated Feels better today BP mostly under control Using CPAP machine in the nights Objective - Vital Signs/Intake and Output Vital Signs (last 24 hours): Temp Pulse Resp BP Pulse Ox 98.2 F 69 20 151/87 H 95 03/14/18 16:46 03/14/18 16:46 03/14/18 16:46 03/14/18 16:46 03/14/18 16:46 Intake and Output: 03/14/18 03/15/18 18:59 06:59 Intake Total 720 Balance 720 - Medications Medications: Current Medications Acetaminophen (Tylenol 325mg Tab) 650 mg PO Q6 PRN PRN Reason: Headache Last Admin: 03/14/18 21:23 Dose: 650 mg Alprazolam (Xanax) 0.25 mg PO BID PRN PRN Reason: Anxiety Stop: 03/17/18 20:08 Last Admin: 03/14/18 21:23 Dose: 0.25 mg Amlodipine Besylate (Norvasc) 10 mg PO DAILY [facility] Last Admin: 03/14/18 09:55 Dose: 10 mg Carvedilol (Coreg) 3.125 mg PO BID [facility] Last Admin: 03/14/18 17:15 Dose: 3.125 mg Hydralazine HCl (Apresoline) 10 mg PO QID [facility] Last Admin: 03/14/18 21:19 Dose: 10 mg Losartan Potassium (Cozaar) 100 mg PO DAILY [facility] Last Admin: 03/14/18 10:05 Dose: 100 mg Magnesium Oxide (Mag-Ox) 400 mg PO BID [facility] Last Admin: 03/14/18 17:15 Dose: 400 mg Nicotine (Nicoderm Cq) 1 patch TD DAILY [facility] Last Admin: 03/14/18 09:55 Dose: 1 patch Nitroglycerin (Nitro-Bid 2% Oint) 1 ea TOP Q6 PRN PRN Reason: chest pain Pantoprazole Sodium (Protonix Ec Tab) 40 mg PO DAILY [facility] Last Admin: 03/14/18 09:55 Dose: 40 mg Rosuvastatin Calcium (Crestor) 20 mg PO HS [facility] Last Admin: 03/14/18 21:19 Dose: 20 mg - Labs Labs: 03/14/18 09:03/14/18 09:09 PT 11.7 SECONDS (9.7-12.2) 03/10/18 17:53 INR 1.1 03/10/18 17:53 Assessment and Plan - Assessment and Plan (Free Text) Assessment: Angina HTN CAD For cath tomorrow afternoon NPO after lunch
[2018-03-15 08:13] LABS: BASO % 0.9 % (0.0-2.0); EOS # 0.1 K/uL (0.0-0.7); EOS % 2.3 % (0.0-4.0); HEMOGLOBIN 15.4 g/dL (12.0-18.0); LYMPH # 1.4 K/uL (1.0-4.3); LYMPH % 28.7 % (20.0-40.0); MEAN CELL VOLUME 84.5 fL (80.0-94.0); MEAN CORPUSCULAR HEMOGLOBIN 29.1 pg (27.0-31.0); MEAN CORPUSCULAR HGB CONC 34.5 g/dL (33.0-37.0); MEAN PLATELET VOLUME 9.6 fL (7.2-11.7); MONO # 0.6 K/uL (0.0-0.8); MONO % 11.5 % (0.0-10.0); NEUT # 2.8 K/uL (1.8-7.0); NEUT % 56.6 % (50.0-75.0); NRBC % 0.3 % (0.0-2.0); RBC 5.29 Mil/uL (4.40-5.90); RED CELL DISTRIBUTION WIDTH 13.7 % (11.5-14.5)
[2018-03-15 08:35] LABS: ALB/GLOB RATIO 1.5 (1.0-2.1); ALBUMIN 4.3 g/dL (3.5-5.0); ALT/SGPT 55 U/L (21-72); AST/SGOT 32 U/L (17-59); BLOOD UREA NITROGEN 10 mg/dL (9-20); GFR AFRICAN-AMERICAN > 60; GFR NON-AFRICAN AMERICAN > 60
[2018-03-15] MEDS: Pantoprazole 40 mg EC Tab PO SCH (10:55)
[2018-03-15] MEDS: Magnesium Oxide 400 mg Tab UD PO SCH ×2 (10:55→20:10)
--- NOTE | 2018-03-15 11:46 | MRI ---
Date of service: 03/15/2018 PROCEDURE: MRI BRAIN WITHOUT CONTRAST HISTORY: Persistent headache COMPARISON: Comparison made with prior CT scan brain 03/10/2018. . TECHNIQUE: Multiplanar, multisequence MR images of the brain were obtained without intravenous contrast enhancement. FINDINGS: HEMORRHAGE: No acute parenchymal, subarachnoid or extra-axial hemorrhage. No evidence of hemosiderin deposition identified on gradient echo weighted sequence. DWI: No evidence of an acute or early subacute infarction seen on diffusion imaging. . BRAIN PARENCHYMA: There are a few tiny chronic appearing foci of increased T2 signal seen scattered about the deep and subcortical white matter both cerebral hemispheres. . These changes are nonspecific though differential diagnosis would include sequela of small vessel disease, migraine headaches, all trauma or post infectious/ inflammatory etiologies. Atypical presentation of a demyelinating disease process not completely excluded. In addition, there are some very minimal prolonged T2 signal changes seen in the periventricular white matter heart which may represent mild FLAIR related CSF interface artifact however some mild concomitant chronic periventricular white matter ischemic changes not excluded. There is also an elliptical shaped on area of CSF like intensity left inferior basal ganglia consistent with dilated perivascular spaces. No obvious parenchymal nor extra-axial mass or collection seen on this noncontrast study. Mild generalized volume loss. VENTRICLES: No obstructive hydrocephalus. CRANIUM: No acute calvarial abnormalities. ORBITS: Orbits and contents unremarkable. . PARANASAL SINUSES/MASTOIDS: Clear VASCULAR SYSTEM: Visualized major vascular flow voids at skull base patent. OTHER FINDINGS: None. IMPRESSION: No acute intracranial hemorrhage or infarction. There are multiple small chronic appearing foci of increased T2 signal scattered about the deep and subcortical white matter of uncertain etiology. Rule out sequela of microvascular ischemic disease however differential diagnosis would include sequela of migraine headaches, old trauma or post infectious/ inflammatory etiologies. Atypical presentation of a demyelinating disease process not completely excluded. Mild generalized volume loss
[2018-03-15] MEDS ORDERED: Iohexol 350mg/ml 100 ML ONE (15:45)
[2018-03-15] MEDS ORDERED: Midazolam 2 MG/2 ML VIAL ONE (15:45)
[2018-03-15] MEDS ORDERED: Verapamil 2 ML ONE (15:46)
[2018-03-15] MEDS ORDERED: Sodium Chloride 0.45% 1,000 ML IV SCH (16:45)
[2018-03-15 19:40] VITALS: RESP 20
--- NOTE | 2018-03-15 19:50 | CP.PCM.PN ---
Subjective - Date & Time of Evaluation Date of Evaluation: 03/15/18 Time of Evaluation: 19:49 - Subjective Subjective: Patient s/p cath Non obstructive coronaries Normal EF Normal Ascending Aorta Medical management with Statins and ASA 81 daily Objective - Vital Signs/Intake and Output Vital Signs (last 24 hours): Temp Pulse Resp BP Pulse Ox 97.6 F 88 20 142/84 97 03/15/18 19:25 03/15/18 19:25 03/15/18 19:25 03/15/18 19:25 03/15/18 19:25 - Medications Medications: Current Medications Acetaminophen (Tylenol 325mg Tab) 650 mg PO Q6 PRN PRN Reason: Headache Last Admin: 03/14/18 21:23 Dose: 650 mg Alprazolam (Xanax) 0.25 mg PO BID PRN PRN Reason: Anxiety Stop: 03/17/18 20:08 Last Admin: 03/14/18 21:23 Dose: 0.25 mg Amlodipine Besylate (Norvasc) 10 mg PO DAILY [facility] Last Admin: 03/15/18 10:55 Dose: 10 mg Aspirin (Ecotrin) 81 mg PO DAILY [facility] Carvedilol (Coreg) 3.125 mg PO BID [facility] Last Admin: 03/15/18 10:55 Dose: 3.125 mg Hydralazine HCl (Apresoline) 10 mg PO QID [facility] Last Admin: 03/15/18 13:15 Dose: 10 mg Sodium Chloride (Sodium Chloride 0.45%) 1,000 mls @ 70 mls/hr IV .[id number] [facility] Stop: 03/16/18 04:45 Losartan Potassium (Cozaar) 100 mg PO DAILY [facility] Last Admin: 03/15/18 11:02 Dose: 100 mg Magnesium Oxide (Mag-Ox) 400 mg PO BID [facility] Last Admin: 03/15/18 10:55 Dose: 400 mg Nicotine (Nicoderm Cq) 1 patch TD DAILY [facility] Last Admin: 03/15/18 10:55 Dose: 1 patch Nitroglycerin (Nitro-Bid 2% Oint) 1 ea TOP Q6 PRN PRN Reason: chest pain Pantoprazole Sodium (Protonix Ec Tab) 40 mg PO DAILY [facility] Last Admin: 03/15/18 10:55 Dose: 40 mg Rosuvastatin Calcium (Crestor) 20 mg PO HS [facility] Last Admin: 03/14/18 21:19 Dose: 20 mg - Labs Labs: 03/15/18 07:57 03/15/18 07:57 PT 11.7 SECONDS (9.7-12.2) 03/10/18 17:53 INR 1.1 03/10/18 17:53
--- NOTE | 2018-03-15 23:49 | CARD ---
APPROVED REPORT Date of service: 03/13/2018 EKG Measurement Heart [id number] <Conclusion> Normal sinus rhythm Minimal voltage criteria for LVH, may be normal variant T wave abnormality, consider lateral ischemia Abnormal ECG
[2018-03-16 07:54] LABS: BASO % 0.6 % (0.0-2.0); EOS # 0.1 K/uL (0.0-0.7); HEMOGLOBIN 15.3 g/dL (12.0-18.0); LYMPH # 1.4 K/uL (1.0-4.3); LYMPH % 25.7 % (20.0-40.0); MEAN CELL VOLUME 84.5 fL (80.0-94.0); MEAN CORPUSCULAR HEMOGLOBIN 28.5 pg (27.0-31.0); MEAN CORPUSCULAR HGB CONC 33.7 g/dL (33.0-37.0); MEAN PLATELET VOLUME 9.7 fL (7.2-11.7); MONO # 0.7 K/uL (0.0-0.8); MONO % 13.2 % (0.0-10.0); NEUT # 3.3 K/uL (1.8-7.0); NEUT % 58.5 % (50.0-75.0); NRBC % 0.1 % (0.0-2.0); RBC 5.35 Mil/uL (4.40-5.90); RED CELL DISTRIBUTION WIDTH 13.6 % (11.5-14.5); WHITE BLOOD COUNT 5.6 K/uL (4.8-10.8)
[2018-03-16 08:16] LABS: ALB/GLOB RATIO 1.5 (1.0-2.1); ALBUMIN 4.5 g/dL (3.5-5.0); ALT/SGPT 57 U/L (21-72); AST/SGOT 34 U/L (17-59); BLOOD UREA NITROGEN 8 mg/dL (9-20); CALCIUM 9.5 mg/dl (8.6-10.4); GFR AFRICAN-AMERICAN > 60; GFR NON-AFRICAN AMERICAN > 60
[2018-03-16 08:17] VITALS: TEMP 97.5; O2SAT 95
--- NOTE | 2018-03-16 08:59 | VASCLAB ---
Date of service: 03/15/2018 PROCEDURE: Ultrasonography renal arterial evaluation HISTORY: HTN COMPARISON: None available. TECHNIQUE: Real-time ultrasonography evaluation of the renal arteries were performed. Comparison is made to the aorta. Report prepared by AUGUST Mckeon, RVT FINDINGS: AORTA: Patent. Peak systolic velocity 140 centimeters/second RIGHT RENAL ARTERY: Renal artery to aorta ratio: 1.4 * Proximal segment: Patent. Peak systolic velocity 194 centimeters/second * Mid segment: Patent. Peak systolic velocity 186 centimeters/second * Distal segment: Patent. Peak systolic velocity 171 centimeters/second Other findings: Right Kidney measures approximately 13.75 centimeters. LEFT RENAL ARTERY: Renal artery to aorta ratio: 1.3 * Proximal segment: Patent. Peak systolic velocity 179 centimeters/second * Mid segment: Patent. Peak systolic velocity 180 centimeters/second * Distal segment: Patent. Peak systolic velocity 156 centimeters/second Other findings: Left Kidney measures approximately 13.60 centimeters. IMPRESSION: No definite hemodynamically significant stenosis involving the renal arteries as visualized.
[2018-03-16 09:11] VITALS: BP 152/90; PULSE 66
[2018-03-16] MEDS: Pantoprazole 40 mg EC Tab PO SCH (09:12)
[2018-03-16] MEDS: Magnesium Oxide 400 mg Tab UD PO SCH (09:13)
--- NOTE | 2018-03-16 11:33 | CP.PCM.PN ---
Subjective - Date & Time of Evaluation Date of Evaluation: 03/16/18 Time of Evaluation: 11:33 - Subjective Subjective: Patient today underwent angiogram. Normal coronaries noted. Blood pressure is controlled well. Clinically he is stable. We will closely monitor. Possible discharge plan tomorrow Objective - Vital Signs/Intake and Output Vital Signs (last 24 hours): Temp Pulse Resp BP Pulse Ox 97.5 F L 66 20 152/90 H 95 03/16/18 07:16 03/16/18 09:10 03/16/18 07:16 03/16/18 09:10 03/16/18 07:16 Intake and Output: 03/16/18 03/16/18 06:59 18:59 Intake Total 560 Balance 560 - Medications Medications: Current Medications Acetaminophen (Tylenol 325mg Tab) 650 mg PO Q6 PRN PRN Reason: Headache Last Admin: 03/14/18 21:23 Dose: 650 mg Alprazolam (Xanax) 0.25 mg PO BID PRN PRN Reason: Anxiety Stop: 03/17/18 20:08 Last Admin: 03/14/18 21:23 Dose: 0.25 mg Amlodipine Besylate (Norvasc) 10 mg PO DAILY [facility] Last Admin: 03/16/18 09:12 Dose: 10 mg Aspirin (Ecotrin) 81 mg PO DAILY [facility] Last Admin: 03/16/18 09:12 Dose: 81 mg Carvedilol (Coreg) 3.125 mg PO BID [facility] Last Admin: 03/16/18 09:12 Dose: 3.125 mg Hydralazine HCl (Apresoline) 10 mg PO QID [facility] Last Admin: 03/16/18 09:12 Dose: 10 mg Losartan Potassium (Cozaar) 100 mg PO DAILY [facility] Last Admin: 03/16/18 09:13 Dose: 100 mg Magnesium Oxide (Mag-Ox) 400 mg PO BID [facility] Last Admin: 03/16/18 09:13 Dose: 400 mg Nicotine (Nicoderm Cq) 1 patch TD DAILY [facility] Last Admin: 03/16/18 09:11 Dose: 1 patch Nitroglycerin (Nitro-Bid 2% Oint) 1 ea TOP Q6 PRN PRN Reason: chest pain Pantoprazole Sodium (Protonix Ec Tab) 40 mg PO DAILY [facility] Last Admin: 03/16/18 09:12 Dose: 40 mg Rosuvastatin Calcium (Crestor) 20 mg PO HS [facility] Last Admin: 03/15/18 21:30 Dose: 20 mg - Labs Labs: 03/16/18 07:47 03/16/18 07:47 PT 11.7 SECONDS (9.7-12.2) 03/10/18 17:53 INR 1.1 03/10/18 17:53
--- NOTE | 2018-03-16 11:50 | CP.PCM.DIS ---
Provider - Provider Date of Admission: 03/10/18 20:36 Attending physician: Bere Lange MD Time Spent in preparation of Discharge (in minutes): 4 Hospital Course - Lab Results Lab Results: Micro Results 03/10/18 08:48 Naris MRSA Culture (Admit) - Final MRSA NOT DETECTED Most Recent Lab Values WBC 5.6 K/uL (4.8-10.8) 03/16/18 07:47 RBC 5.35 Mil/uL (4.40-5.90) 03/16/18 07:47 Hgb 15.3 g/dL (12.0-18.0) 03/16/18 07:47 Hct 45.2 % (35.0-51.0) 03/16/18 07:47 MCV 84.5 fL (80.0-94.0) 03/16/18 07:47 MCH 28.5 pg (27.0-31.0) 03/16/18 07:47 MCHC 33.7 g/dL (33.0-37.0) 03/16/18 07:47 RDW 13.6 % (11.5-14.5) 03/16/18 07:47 Plt Count 270 K/uL (130-400) 03/16/18 07:47 MPV 9.7 fL (7.2-11.7) 03/16/18 07:47 Neut % (Auto) 58.5 % (50.0-75.0) 03/16/18 07:47 Lymph % (Auto) 25.7 % (20.0-40.0) 03/16/18 07:47 [place]cd[place] % (Auto) 13.2 % (0.0-10.0) H 03/16/18 07:47 Eos % (Auto) 2.0 % (0.0-4.0) 03/16/18 07:47 Baso % (Auto) 0.6 % (0.0-2.0) 03/16/18 07:47 Neut # (Auto) 3.3 K/uL (1.8-7.0) 03/16/18 07:47 Lymph # (Auto) 1.4 K/uL (1.0-4.3) 03/16/18 07:47 Mcdowell # (Auto) 0.7 K/uL (0.0-0.8) 03/16/18 07:47 Eos # (Auto) 0.1 K/uL (0.0-0.7) 03/16/18 07:47 Baso # (Auto) 0.0 K/uL (0.0-0.2) 03/16/18 07:47 PT 11.7 SECONDS (9.7-12.2) 03/10/18 17:53 INR 1.1 03/10/18 17:53 Sodium 143 mmol/L (132-148) 03/16/18 07:47 Potassium 4.6 mmol/L (3.6-5.2) 03/16/18 07:47 Chloride 104 mmol/L (98-107) 03/16/18 07:47 Carbon Dioxide 29 mmol/L (22-30) 03/16/18 07:47 Anion Gap 15 (10-20) 03/16/18 07:47 BUN 8 mg/dL (9-20) L 03/16/18 07:47 Creatinine 0.9 mg/dL (0.8-1.5) 03/16/18 07:47 Est GFR ( Amer) > 60 03/16/18 07:47 Est GFR (Non-Af Amer) > 60 03/16/18 07:47 Random Glucose 106 mg/dL (75-110) 03/16/18 07:47 Hemoglobin A1c 5.6 % (4.2-6.5) 03/11/18 06:53 Calcium 9.5 mg/dl (8.6-10.4) 03/16/18 07:47 Phosphorus 4.2 mg/dL (2.5-4.5) 03/13/18 07:01 Magnesium 2.3 mg/dL (1.6-2.3) 03/16/18 07:47 Total Bilirubin 0.5 mg/dL (0.2-1.3) 03/16/18 07:47 AST 34 U/L (17-59) 03/16/18 07:47 ALT 57 U/L (21-72) 03/16/18 07:47 Alkaline Phosphatase 107 U/L (38-126) 03/16/18 07:47 Total Creatine Kinase 102 U/L (55-170) 03/12/18 22:39 CK-MB (Mass) 0.83 ng/mL (0.0-3.38) 03/12/18 22:39 Troponin I < 0.0120 ng/mL (0.00-0.120) 03/12/18 22:39 Total Protein 7.6 g/dL (6.3-8.3) 03/16/18 07:47 Albumin 4.5 g/dL (3.5-5.0) 03/16/18 07:47 Globulin 3.1 gm/dL (2.2-3.9) 03/16/18 07:47 Albumin/Globulin Ratio 1.5 (1.0-2.1) 03/16/18 07:47 Triglycerides 245 mg/dL (0-149) H 03/11/18 06:53 Cholesterol 183 mg/dL (0-199) 03/11/18 06:53 LDL Cholesterol Direct 112 mg/dL (0-129) 03/11/18 06:53 HDL Cholesterol 21 mg/dL (30-70) L 03/11/18 06:53 Lipase 65 U/L (23-300) 03/10/18 17:53 TSH 3rd Generation 0.98 mIU/L (0.46-4.68) 03/12/18 06:19 Urine Color Yellow (YELLOW) 03/10/18 18:09 Urine Clarity Clear (Clear) 03/10/18 18:09 Urine pH 6.0 (5.0-8.0) 03/10/18 18:09 Ur Specific [place] 1.009 (1.003-1.030) 03/10/18 18:09 Urine Protein Negative mg/dL (NEGATIVE) 03/10/18 18:09 Urine Glucose (UA) Normal mg/dL (Normal) 03/10/18 18:09 Urine Ketones Negative mg/dL (NEGATIVE) 03/10/18 18:09 Urine Blood Negative (NEGATIVE) 03/10/18 18:09 Urine Nitrate Negative (NEGATIVE) 03/10/18 18:09 Urine Bilirubin Negative (NEGATIVE) 03/10/18 18:09 Urine Urobilinogen Normal mg/dL (0.2-1.0) 03/10/18 18:09 Ur Leukocyte Esterase Neg Abby/uL (Negative) 03/10/18 18:09 Urine WBC (Auto) < 1 /hpf (0-5) 03/10/18 18:09 Urine RBC (Auto) < 1 /hpf (0-3) 03/10/18 18:09 Ur Squamous Epith Cells < 1 /hpf (0-5) 03/10/18 18:09 - Hospital Course Hospital Course: Chief complaint: Severe headache, chest tightness. HPI: 48-year-old male with a history of hypertension, hypercholesterolemia came to the emergency room with worsening headache. Patient was complaining of increasing headache recently for the last 3-4 days. 2 weeks ago patient went to see ENT specialist for the headache and questionable diagnosis of sinusitis, given antibiotic at that time. But no improvement. Because of the headache worsening, he stopped taking medication for 2 days for the blood pressure, thinking medication causing the pressure. And also he is having increasing pressure in the left eye area. So he stopped taking it. Now the pressure is extremely elevated, associate with a headache especially on the left side of the face on the left side of the forehead. Almost a 10 years ago patient had angiogram of the heart, at that time he was diagnosed with a nonobstructive coronaries. Following that he was not following, and significant weight gain noted. In the past he was evaluated for sleep apnea, but no diagnosis was made at the time. Past medical history: Hypertension hypercholesterolemia anxiety insomnia. Allergies no known drug allergy Family history significant for atrial fibrillation and the mother thyrotoxicosis COPD Surgical history none Personal history: Non-smoker, nonalcoholic. He is working as a police dispatcher Review of system: Significant headache noted. Patient is also having increasing symptoms of headache. No visual symptom, including blurring vision, or floaters noted. Occasional nausea noted. Unable to sleep at night, choking sensation present, morning headache noted. Now having uncontrolled blood pressure On examination: Vital signs are stable. Elevated blood pressure noted. In spite of the 2 antihypertensives pressures still elevated. And because of the headache and associated hypertensive crisis we admitted the patient to intensive care unit with intravenous Cardene drip. Patient has able to move all the 4 extremities, he has no confusion, alert and awake. Labs reviewed Nonspecific. X-ray negative. CT scan of the chest with contrast is showing no evidence of PE. Also no evidence of OTR FLATBED DRIVER problems in the CAT scan of the head Assessment and recommendation: 48-year-old male with a history of hypertension and hypercholesterolemia noncompliance. Now having worsening headache and associated with the hypertension. Most likely hypertensive encephalopathy. Medications updated. According to the animal caretaker supervisor the patient may need evaluation by cardiac cath Close monitoring. Intravenous Cardene drip.Course in the hospital: Patient initially hospitalized in the intensive care unit with a severely uncontrolled hypertension and systemic symptoms. Cardene drip intravenously started. Slowly the blood pressure got better. Patient was transferred to the medical floor. He underwent extensive workup. Headache also continue to be there. Patient seen by neurologist. ENT specialist. Catering Administrative Assistant. Angiogram of the heart showing no evidence of any coronary artery disease. MRI showing small vessel disease Renal vascular study negative for any atherosclerosis ENT evaluation negative Patient blood pressure is controlled well. Currently he is taking losartan 100 mg daily Amlodipine 10 mg daily Coreg 3.125 mg twice a day Hydralazine 25 mg twice a day Patient is also having signs and symptoms related to sleep apnea. We will do the sleep study evaluation as an outpatient. We will continue the current treatment. He will be discharged home today. He will follow-up as an outpatient in 1 week. Will follow the patient Blood pressure monitoring. Cardiology evaluation. ENT evaluation. DVT GI prophylaxis and will follow the patient Discharge Plan - Discharge Medications Prescriptions: hydrALAZINE [Apresoline] 25 mg PO Q12 #60 tab Carvedilol [Coreg] 3.125 mg PO BID #60 tab Losartan [Cozaar] 100 mg PO DAILY #30 tab Rosuvastatin Calcium [Crestor] 20 mg PO HS #30 tab Aspirin [Ecotrin] 81 mg PO DAILY #30 tabec amLODIPine [Norvasc] 10 mg PO DAILY #30 tab - Follow Up Plan Condition: STABLE Disposition: HOME/ ROUTINE Instructions: High Blood Pressure (DC), Chest Pain (DC), Low Salt Diet, Aspirin Additional Instructions: DC home today, follow up in 1 week, outpatient neurology evaluation, sleep evaluation Referrals: Charly Marcelino MD [Staff Provider] - Bere Lange MD [Staff Provider] - Yuliet Cintron MD [Staff Provider] -
--- NOTE | 2018-03-17 07:12 | CP.PCM.PN ---
Subjective - Date & Time of Evaluation Date of Evaluation: 03/16/18 Time of Evaluation: 07:45 - Subjective Subjective: Patient seen and evaluated feels better and would like to go home Objective - Vital Signs/Intake and Output Vital Signs (last 24 hours): Temp Pulse Resp BP Pulse Ox 97.5 F L 66 20 152/90 H 95 03/16/18 07:16 03/16/18 09:10 03/16/18 07:16 03/16/18 09:10 03/16/18 07:16 - Labs Labs: 03/16/18 07:47 03/16/18 07:47 PT 11.7 SECONDS (9.7-12.2) 03/10/18 17:53 INR 1.1 03/10/18 17:53 Assessment and Plan - Assessment and Plan (Free Text) Assessment: HTN controlled Headache: Neuro on case: resolved Hyperlipidemia on meds
== END 2018-03-16 12:29 | disposition home or self-care (01) | DRG 79 ==
LOC: C.ER 17:20 → C.9E 20:36 → C.6T 21:34 → C.9I 23:33 → C.5S 03-11 16:37
PROVIDERS: ADMIT Internal Medicine; ATTEND Internal Medicine
DX: I67.4 Hypertensive encephalopathy (principal); I10 Essential (primary) hypertension; J34.2 Deviated nasal septum; F51.05 Insomnia due to other mental disorder; E78.00 Pure hypercholesterolemia, unspecified; E78.5 Hyperlipidemia, unspecified; I25.119 Atherosclerotic heart disease of native coronary artery with unspecified angina pectoris; F41.9 Anxiety disorder, unspecified; Z79.82 Long term (current) use of aspirin; Z91.19 Patient's noncompliance with other medical treatment and regimen; Z87.891 Personal history of nicotine dependence; G47.30 Sleep apnea, unspecified